=== PATIENT | female | born 1995 | race African-American/Black ===

== ENCOUNTER 2022-07-30 17:52 | Emergency (ER) | payer BC ==
[~2022-07-30] VITALS: Ht 165.1 cm; Wt 57.0 kg
[2022-07-30 18:00] VITALS: BP 122/90
[2022-07-30] MEDS ORDERED: IBUP-2028 MT (20:31)
[2022-07-30] MEDS ORDERED: TOPUD PO (20:31)
[2022-07-30] MEDS ORDERED: BENZ100C86 MT (20:31)
== END 2022-07-30 20:51 | disposition home or self-care (01) ==
LOC: ER 17:52
DX: J06.9 Acute upper respiratory infection, unspecified (principal); R09.81 Nasal congestion; Z98.890 Other specified postprocedural states; Z20.822 Contact with and (suspected) exposure to COVID-19
CPT/HCPCS: 71045; 87426; 87804; 99284; C9803